=== PATIENT | female | born 1955 | race African-American/Black ===

== ENCOUNTER 2018-07-20 19:53 | Emergency (ER) | payer OTHER ==
[~2018-07-20] VITALS: Ht 157.5 cm; Wt 86.2 kg
[2018-07-21] MEDS ORDERED: AMLODIPINE 5MG TABLET PO ONE (01:00)
[2018-07-21] MEDS ORDERED: IBUPROFEN 800MG TABLET PO ONE (01:00)
[2018-07-21 02:30] VITALS: BP 181/101
== END 2018-07-21 02:55 | disposition home or self-care (01) ==
LOC: ER 19:53
DX: S83.8X2A Sprain of other specified parts of left knee, initial encounter (principal); S83.8X1A Sprain of other specified parts of right knee, initial encounter; I16.0 Hypertensive urgency; I10 Essential (primary) hypertension; W01.0XXA Fall on same level from slipping, tripping and stumbling without subsequent striking against object, initial encounter; Y93.89 Activity, other specified; Y92.89 Other specified places as the place of occurrence of the external cause; Y99.8 Other external cause status; Z87.891 Personal history of nicotine dependence
CPT/HCPCS: 73560; 99283

== ENCOUNTER 2018-12-15 19:17 | Emergency (ER) | payer OTHER ==
[~2018-12-15] VITALS: Ht 157.5 cm; Wt 87.0 kg
[2018-12-15] MEDS ORDERED: ONDANSETRON 4MG ODT PO ONE (20:15)
[2018-12-15] MEDS ORDERED: HYDROCODONE/ACETAMINOPHEN 5/325MG TABLET PO ONE (20:15)
[2018-12-15 22:12] VITALS: BP 123/77
== END 2018-12-15 22:25 | disposition home or self-care (01) ==
LOC: ER 19:17
DX: S90.31XA Contusion of right foot, initial encounter (principal); I10 Essential (primary) hypertension; W22.8XXA Striking against or struck by other objects, initial encounter; Y93.89 Activity, other specified; Y92.89 Other specified places as the place of occurrence of the external cause; Y99.8 Other external cause status
CPT/HCPCS: 73630; 99283; Q0162; Z7610